=== PATIENT | female | born 1965 | race American Indian/Alaskan Native ===

== ENCOUNTER 2017-05-23 12:57 | Outpatient (CLI) | payer OTHER | END 2017-05-23 12:58 | disposition home or self-care (01) | LOC: US 12:57 | PROVIDERS: ATTEND Internal Medicine | DX: R92.8 Other abnormal and inconclusive findings on diagnostic imaging of breast (principal) ==

== ENCOUNTER 2018-02-17 08:22 | Outpatient (CLI) | payer OTHER ==
--- NOTE | 2018-02-17 16:08 | Ultrasound Report ---
BILATERAL DIGITAL DIAGNOSTIC MAMMOGRAM with CAD and RIGHT BREAST ULTRASOUND: 02/17/18 08:45:00 CLINICAL: Recent bilateral skin rash of the breasts with itching. She states that she has taken an ointment and it has gotten better with no residual itching. She reports no palpable lump. COMPARISON:09/05/17 bilateral diagnostic mammogram and right breast ultrasound. Via last ultrasound report describes probably benign masses at 7 o'clock 8 cm from the nipple and at 8 o'clock 9 cm from the nipple. FINDINGS: There are bilateral scattered fibroglandular densities with a stable fibroglandular pattern.No mass, architectural distortion or suspicious calcifications.A right biopsy clip at 7 o'clock. No suspicious architectural distortion or suspicious calcifications. Ultrasound of the right breast and demonstrated a stable oval solid heterogeneous hypoechoic mass at 7 o'clock 8 cm from the nipple. It contains a biopsy clip and measures 1.1 x 0.6 x 1.47 m compared to 1.6 x 1.1 x 0.6 cm on the last exam. An isoechoic mass versus benign fat lobule at 8 o'clock 9 cm from the nipple measures 0.8 x 0.5 x 0.5 cm compared to 0.90 0.5 cm on the last exam. It has not changed in appearance. IMPRESSION: Stable mammogram with no suspicious findings and stable right breast lesions at 8 o'clock and 7 o'clock. BI-RADS CATEGORY: 2 -- Benign RECOMMENDATION: Clinical followup and routine mammographic screening in one year. COMMENT: Patient follow-up letters are generated by our [employer] application.
== END 2018-02-17 08:23 | disposition home or self-care (01) ==
LOC: MAMMO 08:22
PROVIDERS: ATTEND Internal Medicine
DX: N64.89 Other specified disorders of breast (principal); R92.8 Other abnormal and inconclusive findings on diagnostic imaging of breast; Z80.3 Family history of malignant neoplasm of breast
CPT/HCPCS: 77066

== ENCOUNTER 2019-03-24 07:08 | Outpatient (CLI) | payer OTHER ==
--- NOTE | 2019-03-24 13:55 | Mammography Report ---
BILATERAL DIGITAL SCREENING MAMMOGRAM with CAD : 03/24/19 07:08:00 CLINICAL: Routine screening. COMPARISON:02/17/18 FINDINGS: The breasts are heterogeneously dense, which may obscure small masses.The fibroglandular pattern is stable. A stable right lower outer mass with a biopsy clip. No new mass, architectural distortion or suspicious calcifications. IMPRESSION: No mammographic evidence of malignancy. BI-RADS CATEGORY: 2 -- Benign RECOMMENDATION: Routine mammographic screening in one year. COMMENT: Patient follow-up letters are generated by our [employer] application.
== END 2019-03-24 07:09 | disposition home or self-care (01) ==
LOC: MAMMO 07:08
PROVIDERS: ATTEND Internal Medicine
DX: Z12.31 Encounter for screening mammogram for malignant neoplasm of breast (principal)
CPT/HCPCS: 77067

== ENCOUNTER 2022-07-05 08:46 | Outpatient (CLI) | payer OTHER ==
--- NOTE | 2022-07-05 16:05 | Mammography Report ---
DIGITAL DIAGNOSTIC MAMMOGRAM , 07/05/2022 CLINICAL INFORMATION / INDICATION: ABNORMAL MAMMOGRAM R92.8 Patient provides history of bilateral br east pain. TECHNIQUE: Digital bilateral mammographic imaging was performed. COMPARISON: 03/24/2019 FINDINGS: Breast Density: There are scattered areas of fibroglandular density. No dominant mass, suspicious calcifications or architectural distortion in either breast. Bilateral r eduction mammoplasty. Stable small mass with associated biopsy clip in the right breast at 6:00. Overall the appearance of the mammogram is stable. IMPRESSION: No mammographic evidence of malignancy. Clinical correlation recommended for bilateral br east pain. Follow up recommendation: Routine yearly screening mammogram. BI-RADS Category 2: BENIGN. A "normal" or negative report should not discourage follow up or biopsy of a clinically significant f inding. A written summary of these findings will be mailed to the patient. The patient will be entered into a mammography reporting system which will generate a reminder letter for the patient's next appointmen t at the appropriate interval. According to the [employer], yearly mammograms are recommended starting at age 40 and continuing as long as a woman is in good health. Breast MRI is recommended for women with an olaf roximately 20-25% or greater lifetime risk of breast cancer, including women with a strong family his tory of breast or ovarian cancer and women who have been treated for Hodgkin's disease. Signer Name: Cielo Gomez MD Signed: 07/05/2022 4:01 PM Workstation Name: [employer]
== END 2022-07-05 08:47 | disposition home or self-care (01) ==
LOC: MAMMO 08:46
PROVIDERS: ATTEND Family Medicine
DX: N63.14 Unspecified lump in the right breast, lower inner quadrant (principal)
CPT/HCPCS: 77066